=== PATIENT | male | born 1940 | race Caucasian/White ===

== ENCOUNTER 2018-08-21 10:06 | Observation (INO) | payer MEDICARE, OTHER ==
[~2018-08-21] VITALS: Ht 177.8 cm; Wt 103.9 kg
[~2018-08-21 10:06] MED LIST: ASPIRIN81 MG PO; CELEBREX100 MG PO; DOXYCYCLINE HY100 MG PO; DYMISTA NASAL S23 GM; HYZAAR 100-251 EACH PO; LASIX PO; LEVAQUIN500 MG PO; METFORMIN HCL500 M2 PO; PRAVASTATIN SOD40 MG PO; TOPROL PO
[2018-08-21] MEDS ORDERED: ASPIRIN 81 MG CHEW TAB PO ONE ×2 (10:30→13:45)
[2018-08-21] MEDS ORDERED: HYDRALAZINE HCL 20 MG/ML VIAL IV ONE (11:00)
--- NOTE | 2018-08-21 11:23 | Diagnostic Imaging Report ---
EXAMINATION: CHEST SINGLE (PORTABLE) INDICATION: ^ERMD ORDER ^[id number] ^1030 ^Y COMPARISON: None FINDINGS: AP view TUBES and LINES: None. LUNGS: Limited by body habitus. Lungs are well inflated. There is no evidence of pneumonia or pulmonary edema. Minimal left basilar subsegmental atelectasis. PLEURA: No pleural effusion or pneumothorax. HEART AND MEDIASTINUM: The cardiomediastinal silhouette is unremarkable. BONES AND SOFT TISSUES: No acute osseous lesion. Left shoulder arthroplasty. Soft tissues are unremarkable. UPPER ABDOMEN: No free air under the diaphragm. IMPRESSION: No acute thoracic abnormality. Signed by: Dr. Harley Chappell MD on 08/21/2018 11:19 AM
[2018-08-21 11:45] LABS: CLARITY,URINE CLEAR (CLEAR); COLOR,URINE COLORLESS (YELLOW)
[2018-08-21 11:46] LABS: BILIRUBIN,URINE NEGATIVE (NEGATIVE); KETONES,URINE NEGATIVE (NEGATIVE); LEUKOCYTE ESTERASE ,URINE NEGATIVE (NEGATIVE); NITRITE,URINE NEGATIVE (NEGATIVE); PROTEIN,URINE DIPSTICK NEGATIVE (NEGATIVE); URINE UROBILINOGEN 0.2 mg/dL (0.2 - 1)
[2018-08-21 11:53] LABS: BASOPHILS % 0.4 % (0.0-1.0); EOSINOPHILS # (AUTO) 0.2 (0.0-0.4); HEMATOCRIT 37.1 % (38.2-49.6); HEMOGLOBIN 12.1 g/dL (14.0-18.0); LYMPHOCYTES # (AUTO) 1.1 (1.0-3.2); LYMPHOCYTES % 14.6 % (18.0-39.1); MEAN CORPUSCULAR HEMOGLOBIN 29.4 pg (28-32); MEAN CORPUSCULAR HGB CONC 32.6 g/dL (31-35); MEAN CORPUSCULAR VOLUME 90.3 fL (81-99); MONOCYTES # (AUTO) 0.6 (0.2-0.8); MONOCYTES % 7.8 % (4.4-11.3); NEUTROPHILS # (AUTO) 5.7 (2.1-6.9); NEUTROPHILS % 74.8 % (38.7-80.0); PLATELET COUNT 219 x10e3/uL (140-360); RED BLOOD COUNT 4.11 x10e6/uL (4.3-5.7); RED CELL DISTRIBUTION WIDTH 15.7 % (11.7-14.4)
[2018-08-21 12:01] LABS: EPITHELIAL CELLS,URINE RARE /LPF
[2018-08-21 12:09] LABS: INR 0.96; PROTHROMBIN TIME 13.7 seconds (11.9-14.5)
[2018-08-21 12:10] LABS: PARTIAL THROMBOPLASTIN TIME 30.7 seconds (23.8-35.5)
[2018-08-21 12:16] LABS: ALANINE AMINOTRANSFERASE 23 IU/L (0-55); ALBUMIN 3.8 g/dL (3.5-5.0); ALBUMIN/GLOBULIN RATIO 1.3 (0.8-2.0); ALKALINE PHOSPHATASE 63 IU/L (40-150); ANION GAP 13.6 mmol/L (8-16); BLOOD UREA NITROGEN 20 mg/dL (7-26); BUN/CREATININE RATIO 17 (6-25); CALCIUM 8.8 mg/dL (8.4-10.2); CARBON DIOXIDE 24 mmol/L (22-29); CHLORIDE 104 mmol/L (98-107); CREATINE KINASE 191 IU/L (30-200); CREATININE, SERUM 1.16 mg/dL (0.72-1.25); EST GLOMERULAR FILTRATION RATE > 60 ML/MIN (60-); GLUCOSE 94 mg/dL (74-118); LIPASE 52 U/L (8-78); MAGNESIUM 2.1 MG/DL (1.3-2.1); POTASSIUM 3.6 mmol/L (3.5-5.1); SODIUM 138 mmol/L (136-145)
[2018-08-21] MEDS ORDERED: NITROGLYCERIN 2% OINT 1 GM PKT TOP ONE (13:00)
[2018-08-21] MEDS ORDERED: NITROGLYCERIN 2% OINT 1 GM PKT ONE (13:03)
[2018-08-21] MEDS ORDERED: MORPHINE SULFATE INJ 4 MG/ML INJ IV PRN (13:45)
[2018-08-21] MEDS ORDERED: ONDANSETRON HCL INJ 2 MG/ML VIAL IV PRN (13:45)
[2018-08-21] MEDS ORDERED: NITROGLYCERIN 0.4 MG SUBL SL PRN (13:45)
--- OUTSIDE RECORDS SUMMARY | 2018-08-21 14:05 | XMS REPORT ---
Author [facility] Address Unknown Phone Unavailable Care Team Providers Care [employer] Name Role Phone Leana PAULSON Unavailable Unavailable Problems This patient has no known problems. Allergies, Adverse Reactions, Alerts This patient has no known allergies or adverse reactions. Medications This patient has no known medications. 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 LUNGS: Limited by body habitus. Lungs are well inflated. There is no evidence of pneumonia or pulmonary edema. Minimal left basilar subsegmental atelectasis. PLEURA: No pleural effusion or pneumothorax. HEART AND MEDIASTINUM: The cardiomediast inal silhouette is unremarkable. BONES AND SOFT TISSUES: No acute osseous lesion. Left shoulder arthroplasty. Soft tissues are unremarkable. UPPER ABDOMEN: No free air under the diaphragm. IMPRESSION: No acute thoracic abnormality. Signed by: Dr. Harley Jacobs MD on 08/21/2018 11:19 AM Dictated By: HARLEY JACOBS MD 111 Transcribed By: KIRILL on 08/21/181118 COPY TO: ANAI GOMEZ NP
--- NOTE | 2018-08-21 14:26 | NUR ---
Dr. Bai at bedside and took off topical nitro patch.
[2018-08-21] MEDS ORDERED: DEXTROSE 50% SYRINGE 50 ML IV PRN (14:45)
[2018-08-21] MEDS: FAMOTIDINE 20 MG TAB PO SCH (14:58)
[2018-08-21] MEDS: CARVEDILOL 12.5 MG TAB PO SCH (14:59)
[2018-08-21] MEDS: HYDROCHLOROTHIAZIDE 25 MG TAB PO SCH (14:59)
--- NOTE | 2018-08-21 15:30 | NUR ---
aware home medications need to be reviewed.
[2018-08-21 15:35] VITALS: BP 170/80
--- NOTE | 2018-08-21 15:35 | NUR ---
Received patient via wheelchair. Accompanied by and daughter. AAOX4 to time, person, place, situation. Respirations even and unlabored. Tele [phone] SR. Denies any chest pain. Oriented patient and family to room. Instructed to use call light for assistance. Voiced understanding.
[2018-08-21 15:51] VITALS: BP 170/80
[2018-08-21 16:00] VITALS: BP 170/80
[2018-08-21] MEDS ORDERED: WELLBUTRIN SR100 MG PO (16:01)
[2018-08-21] MEDS ORDERED: VITAMIN B COMP1 EAC1 PO (16:01)
[2018-08-21] MEDS ORDERED: PROBIOTIC & AC1 EACH PO (16:01)
[2018-08-21] MEDS ORDERED: NEXIUM40 MG PO (16:01)
[2018-08-21] MEDS ORDERED: VITAMIN C500 M1 PO (16:01)
[2018-08-21] MEDS: INSULIN REGULAR, HUMAN 100 UNIT/1 ML 3ML VIAL SQ SCH ×2 (16:52→20:45)
--- NOTE | 2018-08-21 17:04 | History and Physical ---
CHIEF COMPLAINT: Chest congestion. HISTORY OF PRESENT ILLNESS: This patient is a 78-year-old white male who presents to [facility] with 2 to 3 week history of elevated blood pressure. Patient today is experiencing slight tightness in his left-sided chest that radiated to his left shoulder. Patient denies any shortness of breath, nausea, diaphoresis with chest discomfort. In the emergency room, patient had a 12-lead EKG done, which did not reveal any ischemic changes, but did reveal findings consistent with left ventricular hypertrophy. Patient's initial troponin I in the emergency room was 0.236, which is slightly elevated. Patient's B-type natriuretic peptide level was normal at 32. Chest x-ray also did not reveal any effusions, consolidations, or infiltrates. The patient was found to have BUN and creatinine of 20 and 1.16 respectively. Patient was admitted for further evaluation and treatment. REVIEW OF SYSTEMS GENERAL: Weight has been stable. No fever or chills. HEENT: No headaches. No visual changes. CARDIOVASCULAR/RESPIRATORY: Chest pain as per HPI. No cough. GI: No nausea with the chest discomfort. : No UTI symptoms. NEUROMUSCULAR: Complains of arthritic pain in his bilateral shoulders. Denies any limb weakness or numbness. ALLERGIES: NO KNOWN DRUG ALLERGIES. PAST MEDICAL HISTORY 1. Hypertensive heart disease. 2. Hyperlipidemia. 3. Type 2 diabetes. 4. Chronic lower extremity lymphedema. FAMILY HISTORY: Father of myocardial infarction at age 53 and mother of congestive heart failure at age 93. SOCIAL HISTORY: He is and lives with his . 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 No history of tobacco or alcohol use. PAST SURGICAL HISTORY: 1. Bilateral shoulder arthroplasty. 2. Prostate surgery. 3. Cholecystectomy. 4. Lumbar spine surgery in 1998. 5. Right ankle surgery. 6. Left heart catheterization many years ago and no percutaneous coronary intervention required. MEDICATIONS: 1. Aspirin 81 mg daily. 2. Dymista 1 spray each nostril daily. 3. Celebrex 200 mg daily. 4. Doxycycline 100 mg b.i.d. 5. Losartan/hydrochlorothiazide 100/25 mg once a day. 6. Metformin 500 mg daily. 7. Pravastatin 40 mg daily. 8. Lasix 40 mg once a day. 9. Toprol XL 12.5 mg daily. PHYSICAL EXAMINATION GENERAL: He is awake, alert, and fully oriented, very pleasant on exam. His and daughter are at bedside. VITALS: Height is 5 feet 10.5 inches, weight is 234 pounds, BMI of 33. Blood pressure on arrival in the emergency room was 200/90, currently is 150/76, pulse in the 80s, respiratory rate is 18, temperature 98.5, and oxygen saturation 100%. INTEGUMENT: Skin is warm and dry. No pallor or diaphoresis. HEENT: Anicteric sclerae with moist mucous membranes. NECK: Supple. No evidence of jugular venous distention. CARDIOVASCULAR: Distant heart sounds with S4 gallop. LUNGS: No rales. No rhonchi. No wheezes. ABDOMEN: Benign. EXTREMITIES: The patient has 2+ edema in the bilateral lower legs, but this is chronic findings with his lymphedema. The patient has evidence of bilateral shoulder surgery. NEUROLOGIC: Intact. DIAGNOSES 1. Left-sided chest pain, atypical. 2. Hypertensive heart disease. 3. Hyperlipidemia. 4. Stage I chronic kidney disease. PLAN 1. Blood pressure control. 2. Serial cardiac enzymes. 3. Check liver profile. 4. Consult cardiology. 5. Renew home meds. I spent 45 minutes in the care of this patient. Job#: [id number] LIU BARLOW
[2018-08-21] MEDS ORDERED: coq-10 PO (17:10)
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
[2018-08-21] MEDS ORDERED: NITROGLYCERIN 2% OINT 1 GM PKT TOP SCH (18:00)
--- NOTE | 2018-08-21 18:24 | NUR ---
Resting in bed. No s/s of acute distress noted. Report to be given to oncoming nurse
--- NOTE | 2018-08-21 19:15 | NUR ---
patient is complaining of nasal congestion. MD paged awaiting call back.
[2018-08-21 19:49] LABS: CREATINE KINASE MB 4.8 ng/mL (0-5.0)
[2018-08-21 20:00] VITALS: BP 157/83
[2018-08-21 20:36] VITALS: BP 157/83
[2018-08-22] VITALS: BP 192/88
[2018-08-22] MEDS: FAMOTIDINE 20 MG TAB PO SCH (01:45)
[2018-08-22 04:00] VITALS: BP 169/77
[2018-08-22 05:07] LABS: BASOPHILS % 0.5 % (0.0-1.0); EOSINOPHILS # (AUTO) 0.3 (0.0-0.4); EOSINOPHILS % 4.8 % (0.0-6.0); HEMATOCRIT 37.2 % (38.2-49.6); LYMPHOCYTES # (AUTO) 1.4 (1.0-3.2); LYMPHOCYTES % 24.6 % (18.0-39.1); MEAN CORPUSCULAR HEMOGLOBIN 29.3 pg (28-32); MEAN CORPUSCULAR HGB CONC 32.3 g/dL (31-35); MEAN CORPUSCULAR VOLUME 90.7 fL (81-99); MONOCYTES # (AUTO) 0.6 (0.2-0.8); MONOCYTES % 10.4 % (4.4-11.3); NEUTROPHILS # (AUTO) 3.4 (2.1-6.9); NEUTROPHILS % 59.5 % (38.7-80.0); PLATELET COUNT 203 x10e3/uL (140-360); RED CELL DISTRIBUTION WIDTH 15.6 % (11.7-14.4)
[2018-08-22 05:48] LABS: CREATINE KINASE MB 2.8 ng/mL (0-5.0)
[2018-08-22 06:00] LABS: CHOL/HDL RATIO 2.3 (3.9-4.7)
--- NOTE | 2018-08-22 07:18 | NUR ---
pt alert and sitting upright in bed, pt able to make needs known, pt had no distress noted at this time. no c/o pain when asked, pt call light in reach will cont to monitor.
[2018-08-22 07:27] LABS: ALBUMIN 3.7 g/dL (3.5-5.0); ALBUMIN/GLOBULIN RATIO 1.2 (0.8-2.0); ANION GAP 12.6 mmol/L (8-16); CREATININE, SERUM 1.39 mg/dL (0.72-1.25); POTASSIUM 3.6 mmol/L (3.5-5.1)
[2018-08-22] MEDS: INSULIN REGULAR, HUMAN 100 UNIT/1 ML 3ML VIAL SQ SCH ×2 (07:30→11:30)
[2018-08-22 08:00] VITALS: BP 165/82
[2018-08-22] MEDS: CARVEDILOL 12.5 MG TAB PO SCH (08:00)
[2018-08-22] MEDS ORDERED: LOSARTAN POTASSIUM 100 MG TAB PO SCH (09:00)
[2018-08-22] MEDS: HYDROCHLOROTHIAZIDE 25 MG TAB PO SCH (09:00)
[2018-08-22] MEDS ORDERED: ASPIRIN 81 MG ENTERIC COATED PO SCH (09:00)
[2018-08-22 12:08] VITALS: BP 143/73
== END 2018-08-22 15:04 | disposition home or self-care (01) ==
LOC: ER 10:06 → ERHOLD 13:32 → IMCU 15:48
DX: R07.89 Other chest pain (principal); K21.9 Gastro-esophageal reflux disease without esophagitis; I13.10 Hypertensive heart and chronic kidney disease without heart failure, with stage 1 through stage 4 chronic kidney disease, or unspecified chronic kidney disease; E11.22 Type 2 diabetes mellitus with diabetic chronic kidney disease; N18.1 Chronic kidney disease, stage 1; E78.5 Hyperlipidemia, unspecified; Z79.84 Long term (current) use of oral hypoglycemic drugs; I89.0 Lymphedema, not elsewhere classified; R94.31 Abnormal electrocardiogram [ECG] [EKG]
CPT/HCPCS: 36415 ×2; 71045; 80053 ×2; 80061; 81001; 82550 ×2; 82553 ×2; 82948 ×2; 83036; 83690; 83735; 83880; 84443 ×2; 84484 ×2; 85025 ×2; 85610; 85730; 87071; 87086; 87205; 93005; 99284; G0378 ×2; J1817

== ENCOUNTER → 2020-09-26 | Outpatient (CLI) | payer OTHER ==
[~2020-09-26] MED LIST changes: +NEXIUM40 MG PO; +PROBIOTIC & AC1 EACH PO; +VITAMIN B COMP1 EAC1 PO; +VITAMIN C500 M1 PO; +WELLBUTRIN SR100 MG PO; +coq-10 PO
== END ==
LOC: MAMMO 10:22
PROVIDERS: ATTEND Family Medicine
DX: N63.20 Unspecified lump in the left breast, unspecified quadrant (principal)
CPT/HCPCS: 77066

== ENCOUNTER 2021-07-11 23:59 | Emergency (ER) | payer MEDICARE ==
[~2021-07-11] VITALS: Ht 177.8 cm; Wt 103.9 kg
== END 2021-07-12 00:25 | disposition home or self-care (01) ==
LOC: ER 07-12 00:11
DX: L03.116 Cellulitis of left lower limb (principal); I10 Essential (primary) hypertension; E11.9 Type 2 diabetes mellitus without complications; E78.5 Hyperlipidemia, unspecified; K21.9 Gastro-esophageal reflux disease without esophagitis; Z96.611 Presence of right artificial shoulder joint
CPT/HCPCS: 99282

== ENCOUNTER → 2021-08-27 | Outpatient (CLI) | payer MEDICARE | LOC: CT 15:51 | PROVIDERS: ATTEND Family Medicine | DX: H54.7 Unspecified visual loss (principal); R51.9 Headache, unspecified | CPT/HCPCS: 70450 ==

== ENCOUNTER 2022-05-08 11:40 | Emergency (ER) | payer MEDICARE ==
[~2022-05-08] VITALS: Ht 177.8 cm; Wt 102.1 kg
[2022-05-08] MEDS ORDERED: VENTOLIN HFA18 GM INH (12:43)
== END 2022-05-08 12:45 | disposition home or self-care (01) ==
LOC: FSED 11:50
DX: H92.02 Otalgia, left ear (principal); R05.9 Cough, unspecified; I10 Essential (primary) hypertension; E11.9 Type 2 diabetes mellitus without complications; E78.5 Hyperlipidemia, unspecified; K21.9 Gastro-esophageal reflux disease without esophagitis; Z96.611 Presence of right artificial shoulder joint
CPT/HCPCS: 71046; 99282

== ENCOUNTER → 2023-09-21 | Day surgery (SDC) | payer MEDICARE ==
[~2023-09-21] MED LIST changes: +BENICAR5 MG PO; +CLONIDINE HCL0.1 MG PO; +COREG12.5 MG PO; +LACTATED RINGER'S 1,000 ML ONE; +VENTOLIN HFA18 GM INH
[2023-09-21 14:20] VITALS: BP 144/85; PULSE 60; RESP 16; O2SAT 96
== END | disposition home or self-care (01) ==
LOC: OR 11:26
PROVIDERS: ATTEND Internal Medicine Gastroenterology
DX: K29.50 Unspecified chronic gastritis without bleeding (principal); D12.0 Benign neoplasm of cecum; D12.3 Benign neoplasm of transverse colon; D12.8 Benign neoplasm of rectum; K31.7 Polyp of stomach and duodenum; K22.70 Barrett's esophagus without dysplasia; K20.90 Esophagitis, unspecified without bleeding; K21.9 Gastro-esophageal reflux disease without esophagitis; K44.9 Diaphragmatic hernia without obstruction or gangrene; K57.30 Diverticulosis of large intestine without perforation or abscess without bleeding; K59.00 Constipation, unspecified; K62.89 Other specified diseases of anus and rectum; E11.9 Type 2 diabetes mellitus without complications; I10 Essential (primary) hypertension; E78.5 Hyperlipidemia, unspecified; J45.909 Unspecified asthma, uncomplicated; G89.29 Other chronic pain; Z79.82 Long term (current) use of aspirin; Z79.84 Long term (current) use of oral hypoglycemic drugs; Z79.899 Other long term (current) drug therapy
CPT/HCPCS: 36415; 43239; 43251; 45385; 82948; C9113; J7121; 45380